=== PATIENT | male | born 1945 | race Caucasian/White ===

== ENCOUNTER → 2017-06-26 | Outpatient (CLI) | payer MEDICARE, OTHER ==
[~2017-06-26] MED LIST: ASPI-715 PO; ATEN-65 PO; BETA1TAB44 PO; BUDE3CAP6 PO; CYAN250013; DOXY-179 PO; ENZA40CA PO; EZET1TAB53 PO; LEVO75TA68 PO; METR-160 PO; NAPR220C12 PO; OLME1TAB57 PO; OLME1TAB60 PO; OMEP-125 PO; ONDA4TAB PO; POTA25TA28 PO; REGADENOSON 0.4 MG/5 ML SYR ONE; ROSU5TAB8 PO; [UNRECOGNIZED DRUG - CODE]
--- NOTE | 2017-06-28 22:20 | RT STRESS TEST REPORT ---
[place]AC[place] [facility] [place]IENT NAME: ROMELIA REID : [id number] MR: [id number] V: [id number] EXAM DATE: ORDERING PHYSICIAN: GREGORIA HERNÁNDEZ TECHNOLOGIST: Cal Acquisition Time: 2017-06-26 09:01:13 Total Exercise Time: 00:01:00 Test Indications: Syncope Medications: SEE NUC MED LIST Protocol: LEXISCAN Max HR: 083 BPM 54% of Pred: 151 BPM Max BP: 153/104 mmHG Max Work Load: 1.0 METS see nuclear med results Confirmed by KELLEN LOPEZ ([id number]) on 06/28/2017 10:19:36 PM Referred By: Edison Gomez Overread By: KELLEN LOPEZ
--- NOTE | 2017-06-29 14:22 | RADIOLOGY IMAGING REPORT ---
FACILITY: [facility] - [place] PATIENT NAME: Jarrod Osborne : 1945 MR: [id number] V: [id number] EXAM DATE: ORDERING PHYSICIAN: GREGORIA HERNÁNDEZ TECHNOLOGIST: Location[place] [facility] [place] Patient: Jarrod Osborne : 1945 Visit/Account:[id number] Date of Sevice: 06/26/2017 EXAMINATION: Single isotope SPECT imaging with regadenoson infusion and gated SPECT imaging. DATE OF EXAMINATION: 06/26/2017. DATE OF INTERPRETATION: 06/29/2017. REQUESTING PHYSICIAN: GREGORIA HERNÁNDEZ. INDICATION: The patient is a 71-year-old male evaluated for chest pain, history of CAD. PROCEDURE: After informed consent the patient received an intravenous injection of 11.8 mCi of Tc-99 m sestamibi followed at an appropriate time interval by rest imaging. The patient then subsequently received an intravenous infusion of 0.4 mg of regadenoson per protocol without complication. Resting heart rate was 52 bpm with a peak heart rate of 83 bpm. Blood pressure at rest was 153 / 104 and fo llowing infusion was 153 / 104. Baseline EKG demonstrates normal sinus rhythm, no ST or T-wave abnor malities. There were no EKG changes of ischemia following infusion. Symptoms were nonspecific. The patient then received an intravenous injection of 29.9 mCi of Tc-99m sestamibi followed by stress im aging. RAW DATA: Examination of the summed raw data revealed a good quality study. MYOCARDIAL PERFUSION: The tomographic images demonstrate normal study with no evidence of infarct or ischemia. GATED IMAGES: The gated images demonstrate hyperdynamic wall motion, ejection fraction 78%. IMPRESSION: 1. Good quality study 2. Normal myocardial perfusion scan. 3. Hyperdynamic LV systolic function; LVEF 78%. 4. Based on the results of this exam, the patient appears to be at low risk for future cardiovascular events but remains intermediate risk given history of CAD. Report Dictated By: Zaid Chino at 06/29/2017 2:14 PM Report E-Signed By: Zaid Chino at 06/29/2017 2:17 PM WSN:[id number]
== END ==
LOC: NUC 01:24
PROVIDERS: ATTEND Internal Medicine Cardiovascular Disease
DX: I25.118 Atherosclerotic heart disease of native coronary artery with other forms of angina pectoris (principal)
CPT/HCPCS: 78452; 93017; A9500; J2785

== ENCOUNTER 2017-06-30 10:29 | Emergency (ER) | payer MEDICARE, OTHER ==
[~2017-06-30 10:29] MED LIST changes: -REGADENOSON 0.4 MG/5 ML SYR ONE
--- NOTE | 2017-06-30 10:31 | ER Report ---
History and Physical Time Seen By MD: 10:30 Allergies: Coded Allergies: Penicillins (Verified Allergy, Severe, HIVES, TROUBLE BREATHING, 05/16/17) Home Meds Reported Medications Budesonide (BUDESONIDE EC) 3 Mg Capdr...er, 3 MG PO 05/16/17 Cyanocobalamin (Vitamin B-12) (Vitamin B12) 2,500 Mcg Tab.chew 01/26/17 Rosuvastatin Calcium (CRESTOR) 5 Mg Tablet, 5 MG PO QDAY 01/26/17 Enzalutamide (XTANDI) 40 Mg Capsule, 4 TAB PO DAILY, CAPSULE 01/26/17 Olmesartan/Hydrochlorothiazide (BENICAR HCT 40-12.5 MG TABLET) 1 Each Tablet, 1 EACH PO DAILY 01/26/17 Aspirin (Aspirin) 81 Mg Tablet.dr, 81 MG PO DAILY, 0 Refills 04/20/09 Atenolol (Atenolol) 25 Mg Tablet, 25 MG PO DAILY, 0 Refills 04/20/09 Levothyroxine Sodium (Synthroid) 75 Mcg Tablet, 112 MCG PO QDAY, 0 Refills 04/20/09 Hx Smoking: Yes Smoking Status: Former Smoker Depart Departure Referrals: VITA RAIN MD (PCP) DYAN WESTBROOK MD Jun 30, 2017 10:31
--- NOTE | 2017-06-30 10:52 | ER Report ---
History and Physical Time Seen By MD: 10:51 Hx. of Stated Complaint: PATIENT REPORTS THAT HIS SUPRAPUBIC CATHETER IS CLOGGED HPI/ROS CHIEF COMPLAINT: Catheter plugged HISTORY OF PRESENT ILLNESS: 71-year-old male patient presents to the emergency room with complaint of his catheter being plugged. Patient was seen in April and sent down to [facility] for elevated creatinine. They did place a suprapubic catheter there. Patient has had significant improvement since then. Patient states he's feeling fine. He is a couple days ago he knows that his catheter wasn't draining. He states over that time he is noticed that he was having some drainage around the catheter. Allergies: Coded Allergies: Penicillins (Verified Allergy, Severe, HIVES, TROUBLE BREATHING, 05/16/17) Home Meds Reported Medications Budesonide (BUDESONIDE EC) 3 Mg Capdr...er, 3 MG PO 05/16/17 Cyanocobalamin (Vitamin B-12) (Vitamin B12) 2,500 Mcg Tab.chew 01/26/17 Rosuvastatin Calcium (CRESTOR) 5 Mg Tablet, 5 MG PO QDAY 01/26/17 Enzalutamide (XTANDI) 40 Mg Capsule, 4 TAB PO DAILY, CAPSULE 01/26/17 Olmesartan/Hydrochlorothiazide (BENICAR HCT 40-12.5 MG TABLET) 1 Each Tablet, 1 EACH PO DAILY 01/26/17 Aspirin (Aspirin) 81 Mg Tablet.dr, 81 MG PO DAILY, 0 Refills 04/20/09 Atenolol (Atenolol) 25 Mg Tablet, 25 MG PO DAILY, 0 Refills 04/20/09 Levothyroxine Sodium (Synthroid) 75 Mcg Tablet, 112 MCG PO QDAY, 0 Refills 04/20/09 Past Medical/Surgical History Patient has a past medical history of hypertension, hyperlipidemia, hypothyroidism, prostate cancer. Patient has surgical history of bladder surgery for stones, left rotator cuff surgery, back surgery 3, suprapubic catheter. Reviewed Nurses Notes: Yes Hx Smoking: Yes Smoking Status: Former Smoker Physical Exam General appearance: Alert no distress. Respiratory: Chest is non tender, lungs are clear to auscultation. Cardiac: Regular rate and rhythm DIFFERENTIAL DIAGNOSIS: After history and physical exam differential diagnosis was considered for catheter blockage, catheter dysfunction. Medical Decision Making ED Course/Re-evaluation ED Course Patient examined, history and physical were obtained. Differential diagnoses were considered. On examination lungs are clear, heart is regular. Denied gotten here and evaluated the patient the catheter had been flushed, they were able to get out a mucous plug and then were able to drain it normally. The tube going down to the leg bag was washed as well without any difficulties and patient was draining urine at that time. We will go ahead and discharge patient home at this time. He is return to the emergency room with any worsening of his condition. He is to follow-up with his primary care provider, Dr. Ramos, in the next week. Patient verbalized understanding and agreement with plan. Decision to Disposition Date: Jun 30, 2017 Decision to Disposition Time: 11:00 Depart Departure Impression: Primary Impression: Obstructed suprapubic catheter Condition: Improved Disposition: HOME OR SELF-CARE Referrals: VITA RAIN MD (PCP) Patient Instructions: GENERAL ER DISCHARGE INSTRUCTIONS Additional Instructions: Increase fluid intake. Follow up with your primary care provider in the next week. Get plenty of rest. Return to the ER if condition worsens. Problem Qualifiers Primary Impression: Obstructed suprapubic catheter Encounter type: initial encounter Qualified Codes: T83.090A - Other mechanical complication of cystostomy catheter, initial encounter ZACKARY VICKERS Jun 30, 2017 10:52
== END 2017-06-30 11:08 | disposition home or self-care (01) ==
LOC: ER 10:39
DX: T83.090A Other mechanical complication of cystostomy catheter, initial encounter (principal)
CPT/HCPCS: 99282

== ENCOUNTER 2017-07-12 15:19 | Emergency (ER) | payer MEDICARE, OTHER ==
[~2017-07-12] VITALS: Ht 167.6 cm; Wt 53.5 kg
[2017-07-12 15:30] VITALS: BP 151/82
--- NOTE | 2017-07-12 15:32 | ER Report ---
History and Physical Time Seen By MD: 15:32 HPI/ROS CHIEF COMPLAINT: Suprapubic catheter replacement HISTORY OF PRESENT ILLNESS: This is a 71-year-old male who presents to the emergency department for a suprapubic catheter replacement as well as possible skin infection. Patient states that he noticed this morning while he was taking a shower that the area around his suprapubic catheter was red with some purulent drainage, he called Dr. Ramos who subsequently instructed the patient to come to the emergency department for the catheter replacement as well as antibiotics. Patient has no other complaints, no aches, chills, fevers, nausea, vomiting, diarrhea or headaches. REVIEW OF SYSTEMS: Respiratory: No cough, no dyspnea. Cardiovascular: No chest pain, no palpitations. Gastrointestinal: No vomiting, no abdominal pain. Musculoskeletal: No back pain. Integumentary: As above. Allergies: Coded Allergies: Penicillins (Verified Allergy, Severe, HIVES, TROUBLE BREATHING, 07/12/17) Home Meds Active Scripts Cephalexin (KEFLEX) 250 Mg Capsule, 500 MG PO Q6H for 5 Days, #20 CAPSULE Prov:REBECCA FABIAN DUMP TRUCK OPERATOR-BC 07/12/17 Reported Medications Budesonide (BUDESONIDE EC) 3 Mg Capdr...er, 3 MG PO 05/16/17 Cyanocobalamin (Vitamin B-12) (Vitamin B12) 2,500 Mcg Tab.chew 01/26/17 Rosuvastatin Calcium (CRESTOR) 5 Mg Tablet, 5 MG PO QDAY 01/26/17 Enzalutamide (XTANDI) 40 Mg Capsule, 4 TAB PO DAILY, CAPSULE 01/26/17 Olmesartan/Hydrochlorothiazide (BENICAR HCT 40-12.5 MG TABLET) 1 Each Tablet, 1 EACH PO DAILY 01/26/17 Aspirin (Aspirin) 81 Mg Tablet.dr, 81 MG PO DAILY, 0 Refills 04/20/09 Atenolol (Atenolol) 25 Mg Tablet, 25 MG PO DAILY, 0 Refills 04/20/09 Levothyroxine Sodium (Synthroid) 75 Mcg Tablet, 112 MCG PO QDAY, 0 Refills 04/20/09 Past Medical/Surgical History Chin has a past medical and surgical history of stent in the LAD, hypertension, hypercholesterolemia, GERD, autoimmune ulcerative colitis, prostatectomy, urinary sphincter, wears glasses, hypothyroidism, prostate cancer, stents placed , left rotator cuff repair, back surgery 3. Reviewed Nurses Notes: Yes Hx Smoking: Yes Smoking Status: Former Smoker Constitutional Vital Sign - Last 24 Hours 07/12/17 15:30 Temp 97.9 Pulse 56 Resp 14 B/P (MAP) 151/82 Pulse Ox 99 O2 Delivery Room Air Physical Exam General Appearance: The patient is alert, has no immediate need for airway protection and no current signs of toxicity. Eyes: Pupils equal and round no injection. Respiratory: Chest is non tender, lungs are clear to auscultation. Cardiac: regular rate and rhythm, no murmurs, clicks or rubs. Gastrointestinal: Abdomen is soft and non tender, no masses, bowel sounds normal. Musculoskeletal: Neck: Neck is supple and non tender. Extremities have full range of motion and are non tender. Skin: Small amount of erythema with purulent drainage from the suprapubic catheter site. DIFFERENTIAL DIAGNOSIS: After history and physical exam differential diagnosis was considered for suprapubic catheter dysfunction, suprapubic catheter clot, cellulitis. Medical Decision Making ED Course/Re-evaluation ED Course Patient was admitted to room. A history physical were obtained. Differential diagnosis considered. The patient's suprapubic catheter was removed without complications, the site was cleaned and prepped with Hibiclens. Then a new 12 Tajik Clark catheter was placed as a suprapubic catheter, without complications. He tolerated the procedure very well. Patient was placed on Keflex and instructed to follow-up with Dr. Ramos. Patient had no other questions or concerns and was discharged home. Patient was also encouraged to return to the emergency department for any worsening symptoms or any other concerns. Decision to Disposition Date: Jul 12, 2017 Decision to Disposition Time: 16:07 Depart Departure Latest Vital Signs Vital Signs Date Time Temp Pulse Resp B/P (MAP) Pulse Ox O2 Delivery O2 Flow Rate FiO2 07/12/17 15:30 97.9 56 14 151/82 99 Room Air Impression: Primary Impression: Encounter for care or replacement of suprapubic tube Condition: Improved Disposition: HOME OR SELF-CARE Referrals: VITA RAIN MD (PCP) New Scripts Cephalexin (KEFLEX) 250 Mg Capsule 500 MG PO Q6H for 5 Days, #20 CAPSULE Prov: REBECCA FABIAN DUMP TRUCK OPERATOR-BC 07/12/17 Patient Instructions: How to Care for Your Suprapubic Catheter (ED) Additional Instructions: Drink plenty of fluids. Get plenty of rest. We have collected a specimen from your site and cultured it, if your antibiotics need to be changed we will call you. Follow up with Dr. Gaming for within one week. May return to the ED for worsening symptoms. REBECCA FABIAN DUMP TRUCK OPERATOR- Jul 12, 2017 15:32
[2017-07-12] MEDS ORDERED: CEPH250C37 PO (16:11)
== END 2017-07-12 16:26 | disposition home or self-care (01) ==
LOC: ER 15:20
DX: T83.018A Breakdown (mechanical) of other urinary catheter, initial encounter (principal)
CPT/HCPCS: 87070; 87077; 87186; 99283; A4338

== ENCOUNTER 2017-07-24 21:30 | Emergency (ER) | payer MEDICARE, OTHER ==
[~2017-07-24] VITALS: Ht 167.6 cm; Wt 55.3 kg
[~2017-07-24 21:30] MED LIST changes: +CEPH250C37 PO
[2017-07-24 22:30] VITALS: BP 140/85
--- NOTE | 2017-07-24 22:48 | ER Report ---
History and Physical Time Seen By MD: 21:34 Hx. of Stated Complaint: PT REPORTS HAVING ISSUES WITH SUPRAPUBIC CATHETER. HPI/ROS CHIEF COMPLAINT: Suprapubic catheter problem HISTORY OF PRESENT ILLNESS: Patient reports suprapubic catheter accidentally came out today approximately 1 hour prior to arrival he did not notice until just prior to arrival where he replaced it with some difficulty. He is concerned it may have gotten contaminated by being outside the body. He is currently on Keflex for a recurrent UTI after some eye catheter problem in the recent past. He has a urology appointment tomorrow at [facility]. He is concerned about infection and likely catheter replaced today. Denies other concerns or complaints today. Past medical history includes prostate cancer radical prostatectomy and chemotherapy. Last dose was sometime ago. REVIEW OF SYSTEMS: Constitutional: No fever, no chills. Eyes: No discharge. ENT: No sore throat. Cardiovascular: No chest pain, no palpitations. Respiratory: No cough, no shortness of breath. Gastrointestinal: No abdominal pain, no vomiting. Genitourinary: No hematuria. Musculoskeletal: No back pain. Skin: No rashes. Neurological: No headache. Allergies: Coded Allergies: Penicillins (Verified Allergy, Severe, HIVES, TROUBLE BREATHING, 07/24/17) Home Meds Reported Medications Budesonide (BUDESONIDE EC) 3 Mg Capdr...er, 3 MG PO 05/16/17 Cyanocobalamin (Vitamin B-12) (Vitamin B12) 2,500 Mcg Tab.chew 01/26/17 Rosuvastatin Calcium (CRESTOR) 5 Mg Tablet, 5 MG PO QDAY 01/26/17 Enzalutamide (XTANDI) 40 Mg Capsule, 4 TAB PO DAILY, CAPSULE 01/26/17 Olmesartan/Hydrochlorothiazide (BENICAR HCT 40-12.5 MG TABLET) 1 Each Tablet, 1 EACH PO DAILY 01/26/17 Aspirin (Aspirin) 81 Mg Tablet.dr, 81 MG PO DAILY, 0 Refills 04/20/09 Atenolol (Atenolol) 25 Mg Tablet, 25 MG PO DAILY, 0 Refills 04/20/09 Levothyroxine Sodium (Synthroid) 75 Mcg Tablet, 112 MCG PO QDAY, 0 Refills 04/20/09 Discontinued Scripts Cephalexin (KEFLEX) 250 Mg Capsule, 500 MG PO Q6H for 5 Days, #20 CAPSULE Prov:REBECCA FABIAN CORK COMPOUNDER-BC 07/12/17 Hx Smoking: Yes Smoking Status: Former Smoker Constitutional Vital Sign - Last 24 Hours 07/24/17 07/24/17 07/24/17 07/24/17 21:34 21:34 21:45 22:00 Temp 98.3 Pulse 61 58 Resp 14 B/P (MAP) 163/98 (119) 144/107 (119) Pulse Ox 97 98 99 O2 Delivery Room Air 07/24/17 22:30 B/P (MAP) 140/85 (103) Intake and Output 07/24/17 07/24/17 07/25/17 15:00 23:00 07:00 Output Total 10 ml Balance -10 ml Physical Exam General Appearance: The patient is alert, has no immediate need for airway protection and no signs of toxicity. No distress Eyes: Pupils equal and round no pallor or injection. ENT, Mouth: Mucous membranes are moist. Respiratory: There are no retractions, lungs are clear to auscultation. Cardiovascular: Regular rate and rhythm. No murmurs gallops or rubs Gastrointestinal: Abdomen is soft and non tender, no masses, bowel sounds normal. Neurological: Normal Skin: Warm and dry, no rashes. Skin surrounding catheter site is mildly erythematous with mild discharge. No signs of abscess. Catheter appears intact Musculoskeletal: Neck is supple non tender. Extremities are nontender, nonswollen and have full range of motion. No edema DIFFERENTIAL DIAGNOSIS: After history and physical exam differential diagnosis was considered for catheter problem, catheter tip infection, UTI Medical Decision Making Data Points Laboratory Hematology Test 07/24/17 22:10 Urine Color Yellow Urine Clarity Turbid Urine pH 5.0 pH (4.8-9.5) Urine Specific [place] 1.014 Urine Protein 100 mg/dL (NEGATIVE) Urine Glucose (UA) Negative mg/dL (NEGATIVE) Urine Ketones Negative mg/dL (NEGATIVE) Urine Blood Moderate (NEGATIVE) Urine Nitrite Positive (NEGATIVE) Urine Bilirubin Negative (NEGATIVE) Urine Urobilinogen Negative mg/dL (0.2-1.9) Urine Leukocyte Esterase Large (NEGATIVE) Urine RBC 58 /HPF (0-2/HPF) Urine WBC 1479 /HPF (0-5/HPF) Urine WBC Clumps Many /HPF Urine Squamous Epithelial Cells Many /LPF (NONE-FEW) Urine Amorphous Crystals Few /HPF Urine Bacteria Few /HPF (NONE-FEW) Urine Mucus Few /HPF (NONE-FEW) Chemistry Test 07/24/17 22:10 Urine Color Yellow Urine Clarity Turbid Urine pH 5.0 pH (4.8-9.5) Urine Specific [place] 1.014 Urine Protein 100 mg/dL (NEGATIVE) Urine Glucose (UA) Negative mg/dL (NEGATIVE) Urine Ketones Negative mg/dL (NEGATIVE) Urine Blood Moderate (NEGATIVE) Urine Nitrite Positive (NEGATIVE) Urine Bilirubin Negative (NEGATIVE) Urine Urobilinogen Negative mg/dL (0.2-1.9) Urine Leukocyte Esterase Large (NEGATIVE) Urine RBC 58 /HPF (0-2/HPF) Urine WBC 1479 /HPF (0-5/HPF) Urine WBC Clumps Many /HPF Urine Squamous Epithelial Cells Many /LPF (NONE-FEW) Urine Amorphous Crystals Few /HPF Urine Bacteria Few /HPF (NONE-FEW) Urine Mucus Few /HPF (NONE-FEW) Urinalysis Test 07/24/17 22:10 Urine Color Yellow Urine Clarity Turbid Urine pH 5.0 pH (4.8-9.5) Urine Specific [place] 1.014 Urine Protein 100 mg/dL (NEGATIVE) Urine Glucose (UA) Negative mg/dL (NEGATIVE) Urine Ketones Negative mg/dL (NEGATIVE) Urine Blood Moderate (NEGATIVE) Urine Nitrite Positive (NEGATIVE) Urine Bilirubin Negative (NEGATIVE) Urine Urobilinogen Negative mg/dL (0.2-1.9) Urine Leukocyte Esterase Large (NEGATIVE) Urine RBC 58 /HPF (0-2/HPF) Urine WBC 1479 /HPF (0-5/HPF) Urine WBC Clumps Many /HPF Urine Squamous Epithelial Cells Many /LPF (NONE-FEW) Urine Amorphous Crystals Few /HPF Urine Bacteria Few /HPF (NONE-FEW) Urine Mucus Few /HPF (NONE-FEW) ED Course/Re-evaluation ED Course Plan of care agreed-upon ED time stamp catheter was replaced by tech without difficulty 12 Pashto placed atraumatically without bleeding noted pus on tip of catheter. Yeast was present as 05/18/2017 this micro-was provided for patient to bring to his urologist appointment to discuss. Urinalysis today's result was also provided. Decision to Disposition Date: Jul 24, 2017 Decision to Disposition Time: 23:09 Depart Departure Latest Vital Signs Vital Signs Date Time Temp Pulse Resp B/P (MAP) Pulse Ox O2 Delivery O2 Flow Rate FiO2 07/24/17 22:30 140/85 (103) 07/24/17 22:00 99 07/24/17 21:45 58 07/24/17 21:34 98.3 14 Room Air Impression: Primary Impression: Encounter for care or replacement of suprapubic tube Additional Impression: UTI (urinary tract infection) Condition: Improved Disposition: HOME OR SELF-CARE Referrals: VITA RAIN MD (PCP) New Scripts Nitrofurantoin Monohyd/M-Cryst (MACROBID 100 MG CAPSULE) 100 Mg Capsule 100 MG PO BID for 1 Day, #14 CAPSULE Prov: SALBADOR MONTESINOS MD 07/24/17 Patient Instructions: How to Care for Your Suprapubic Catheter (ED) Problem Qualifiers SALBADOR MONTESINOS MD Jul 24, 2017 22:48
[2017-07-24] MEDS ORDERED: NITR-105 PO (23:13)
== END 2017-07-24 23:20 | disposition home or self-care (01) ==
LOC: ER 21:41
DX: Z46.6 Encounter for fitting and adjustment of urinary device (principal); N39.0 Urinary tract infection, site not specified
CPT/HCPCS: 81001; 87071; 87088; 99283; A4338

== ENCOUNTER → 2017-10-23 | Outpatient (CLI) | payer MEDICARE, OTHER ==
[~2017-10-23] MED LIST changes: +NITR-105 PO
== END ==
LOC: SPU 07:45
PROVIDERS: ATTEND Urology
DX: C61 Malignant neoplasm of prostate (principal); N32.0 Bladder-neck obstruction
CPT/HCPCS: 51702

== ENCOUNTER → 2017-10-29 | Outpatient (CLI) | payer MEDICARE, OTHER ==
--- NOTE | 2017-10-29 11:33 | RADIOLOGY IMAGING REPORT ---
[facility] PATIENT NAME: Jarrod Osborne : 1945 MR: [id number] V: [id number] EXAM DATE: ORDERING PHYSICIAN: ROBBY MCNAMARA TECHNOLOGIST: Location: [facility] [place] Patient: Jarrod Osborne : 1945 Visit/Account:[id number] Date of Sevice: 10/29/2017 DEXA Scan Clinical history: Cystic cancer. Comparison: None available. LUMBAR SPINE: The bone mineral density (BMD) measured from L1-L4 correlates with a Z-score -1.3 and a T-score of -2 .3 which is osteopenia as defined by the World Health Organization. The corresponding risk of fractu re in the lumbar spine is 4-6 times increased compared with a young adult reference population. HIP: Bone mineral density (BMD) measured in the right total hip region correlates with a Z-score -1 and a T-score of -2 which is osteopenia as defined by the World Health Organization. The corresponding ris k of fracture in the hip is 4 times increased compared with a young adult reference population. T s core left femoral neck -2.4 Bone mineral density (BMD) measured in the Femoral Neck region measures 0.599 g/cm2. Impression: 1. Lumbar spine: Osteopenia. 2. Left Hip: Osteopenia. 3. Femoral Neck: Bone Mineral Density is 0.599 g/cm2 The next DEXA scan of this patient should include the following sites: L1-L4 and the left hip. FRAX? WHO Fracture Risk Assessment Tool link: <http://www.shef.ac.uk/FRAX/tool.jsp?locationValue=9> PLEASE NOTE: 1) The World Health Organization defines low BMD as follows: T-score Normal > -1 Osteopenia < -1 and > -2.5 Osteoporosis < -2.5 without fractures Established osteoporosis < -2.5 with fractures 2) In general, you may wish to consider: Diagnosis Treatment Follow-up DEXA Normal BMD Prevention 2-3 years Osteopenia Prevention/therapy 1-2 years Osteoporosis Therapy Yearly 3) Fracture risk estimated from the T-score is more accurate for vertebral fractures (often spontane ous) than for hip fractures. Report Dictated By: Ann Grant MD at 10/29/2017 11:28 AM Report E-Signed By: Ann Grant MD at 10/29/2017 11:29 AM ARJUNN:ELIZABETH
== END ==
LOC: RAD 03:20
PROVIDERS: ATTEND Urology
DX: Z13.820 Encounter for screening for osteoporosis (principal); M85.88 Other specified disorders of bone density and structure, other site; C61 Malignant neoplasm of prostate
CPT/HCPCS: 77080

== ENCOUNTER → 2017-11-27 | Outpatient (CLI) | payer MEDICARE, OTHER | LOC: SPU 08:17 | PROVIDERS: ATTEND Urology | DX: C61 Malignant neoplasm of prostate (principal); N32.0 Bladder-neck obstruction; R32 Unspecified urinary incontinence | CPT/HCPCS: 51702 ==

== ENCOUNTER → 2018-03-25 | Outpatient (RCR) | payer MEDICARE, OTHER ==
[2018-02-20 09:26] VITALS: BP 149/89
== END ==
LOC: SPU 07-19 08:11
PROVIDERS: ATTEND Internal Medicine Hematology & Oncology
DX: C61 Malignant neoplasm of prostate (principal); C41.9 Malignant neoplasm of bone and articular cartilage, unspecified; E53.8 Deficiency of other specified B group vitamins
CPT/HCPCS: 51702

== ENCOUNTER → 2018-03-26 | Outpatient (REF) | payer MEDICARE, OTHER | LOC: ZZSENDIN 17:12 | PROVIDERS: ATTEND Urology | DX: N39.0 Urinary tract infection, site not specified (principal) | CPT/HCPCS: 87088 ==

== ENCOUNTER → 2018-08-05 | Outpatient (CLI) | payer MEDICARE, OTHER ==
[~2018-08-05] MED LIST changes: -METR-160 PO; +METR500T15 PO
== END ==
LOC: SPU 15:09
PROVIDERS: ATTEND Family Medicine
DX: N39.0 Urinary tract infection, site not specified (principal)
CPT/HCPCS: 51701; 81001; 87088

== ENCOUNTER → 2018-08-30 | Outpatient (REF) | payer MEDICARE, OTHER | LOC: ZZSENDIN 17:06 | PROVIDERS: ATTEND Family Medicine | DX: R19.7 Diarrhea, unspecified (principal) | CPT/HCPCS: 83630; 83993; 87045; 87324; 87449 ==

== ENCOUNTER 2018-09-13 12:52 | Outpatient (RCR) | payer MEDICARE, OTHER ==
[2018-02-20 09:26] VITALS: BP 149/89
== END 2018-10-21 ==
LOC: SPU 12:52
PROVIDERS: ATTEND Urology
DX: N39.0 Urinary tract infection, site not specified (principal); N32.0 Bladder-neck obstruction; C61 Malignant neoplasm of prostate; B96.20 Unspecified Escherichia coli [E. coli] as the cause of diseases classified elsewhere; B96.89 Other specified bacterial agents as the cause of diseases classified elsewhere
CPT/HCPCS: 51701; 51702; 81001; 87077; 87088; 87186

== ENCOUNTER → 2018-12-04 | Outpatient (CLI) | payer MEDICARE, OTHER ==
[~2018-12-04] MED LIST changes: -OMEP-125 PO; +OMEP-126 PO
== END ==
LOC: LAB 10:57
PROVIDERS: ATTEND Urology
DX: N39.0 Urinary tract infection, site not specified (principal); B96.89 Other specified bacterial agents as the cause of diseases classified elsewhere
CPT/HCPCS: 87077; 87088; 87186

== ENCOUNTER 2019-01-06 11:30 | Outpatient (RCR) | payer MEDICARE, OTHER ==
[2018-02-20 09:26] VITALS: BP 149/89
== END 2019-01-08 13:28 | disposition home or self-care (01) ==
LOC: SPU 11:30
PROVIDERS: ATTEND Urology
DX: C61 Malignant neoplasm of prostate (principal); N32.0 Bladder-neck obstruction; N39.0 Urinary tract infection, site not specified
CPT/HCPCS: 51702

== ENCOUNTER 2019-01-19 10:23 | Inpatient (IN) | payer MEDICARE, OTHER ==
[~2019-01-19] VITALS: Ht 167.6 cm; Wt 59.0 kg
--- NOTE | 2019-01-19 10:28 | ER Report ---
History and Physical Time Seen By MD: 10:24 HPI/ROS CHIEF COMPLAINT: Flank pain, UTI symptoms HISTORY OF PRESENT ILLNESS: Patient is a 73-year-old male with past medical history significant for prostate cancer managed 20 years ago also currently on chemotherapy for some metastasis. Patient follows with Dr. Arley Lim at [facility] as is his urologist. He apparently is scheduled to have lateral reconstructive surgery in approximately one month. He also has a history of ulcerative colitis and does take steroids and has been on them for the last 3-4 weeks with no improvement of his diarrhea type symptoms. Patient states urine has been foul-smelling and is consistent with his history of prior urinary tract infections. For this reason he presents to the emergency department for evaluation. REVIEW OF SYSTEMS: Constitutional: Generalized malaise approximately 10 pound weight loss over the last week, anorexia Eyes: No discharge. ENT: No sore throat. Cardiovascular: No chest pain, no palpitations. Respiratory: No cough, no shortness of breath. Gastrointestinal: No abdominal pain, no vomiting. Right CVA tenderness Genitourinary: Foul-smelling urine Musculoskeletal: No back pain. Skin: No rashes. Neurological: No headache. Allergies: Coded Allergies: Penicillins (Verified Allergy, Severe, HIVES, TROUBLE BREATHING, 01/19/19) Home Meds Reported Medications Cyanocobalamin (Vitamin B-12) (B-12) 500 Mcg Tablet, 500 MCG PO DAILY 01/19/19 Levothyroxine Sodium (SYNTHROID) 112 Mcg Tablet, 112 MCG PO QDAY, TAB 01/19/19 Rosuvastatin Calcium (CRESTOR) 10 Mg Tab, 10 MG PO QDAY, #5 TAB 01/19/19 Budesonide (BUDESONIDE EC) 3 Mg Capdr...er, 9 MG PO QDAY take 3 capsules once a day 05/16/17 Enzalutamide (XTANDI) 40 Mg Capsule, 4 TAB PO DAILY, CAPSULE 01/26/17 Olmesartan/Hydrochlorothiazide (BENICAR HCT 40-12.5 MG TABLET) 1 Each Tablet, 1 EACH PO DAILY 01/26/17 Aspirin (Aspirin) 81 Mg Tablet., 81 MG PO DAILY, 0 Refills 04/20/09 Discontinued Reported Medications [vitamin b12] No Conflict Check, 500 MCG PO QDAY 01/19/19 Cyanocobalamin (Vitamin B-12) (Vitamin B12) 2,500 Mcg Tab.chew 01/26/17 Rosuvastatin Calcium (CRESTOR) 5 Mg Tablet, 5 MG PO QDAY 01/26/17 Atenolol (Atenolol) 25 Mg Tablet, 25 MG PO DAILY, 0 Refills 04/20/09 Levothyroxine Sodium (Synthroid) 75 Mcg Tablet, 112 MCG PO QDAY, 0 Refills 04/20/09 Discontinued Scripts Nitrofurantoin Monohyd/M-Cryst (MACROBID 100 MG CAPSULE) 100 Mg Capsule, 100 MG PO BID for 1 Day, #14 CAPSULE Prov:SALBADOR MONTESINOS MD 07/24/17 Past Medical/Surgical History past medical and surgical history of stent in the LAD, hypertension, hypercholesterolemia, GERD, autoimmune ulcerative colitis, prostatectomy, urinary sphincter, wears glasses, hypothyroidism, prostate cancer, stents placed, left rotator cuff repair, back surgery 3 . Hx Smoking: Yes Smoking Status: Former Smoker Constitutional Vital Sign - Last 24 Hours 01/19/19 01/19/19 01/19/19 01/19/19 10:26 10:30 10:35 10:53 Temp 98.5 Pulse 86 82 Resp 14 15 B/P (MAP) 124/75 (91) 114/79 (91) 114/79 Pulse Ox 93 90 O2 Delivery Room Air 01/19/19 01/19/19 01/19/19 01/19/19 11:00 11:23 11:30 11:53 Pulse 83 77 Resp 8 28 B/P (MAP) 100/71 (81) 107/72 (84) Pulse Ox 91 92 01/19/19 01/19/19 01/19/19 01/19/19 11:58 12:00 12:28 12:30 Pulse 76 73 Resp 27 12 B/P (MAP) 117/76 (90) 120/83 (95) Pulse Ox 93 91 01/19/19 01/19/19 01/19/19 01/19/19 13:00 13:05 13:30 13:35 Pulse 76 81 Resp 12 10 B/P (MAP) 114/72 (86) 129/84 (99) Pulse Ox 95 95 01/19/19 01/19/19 01/19/19 01/19/19 13:40 14:00 14:10 14:30 Pulse 82 81 Resp 9 19 B/P (MAP) 126/76 (93) 118/84 (95) Pulse Ox 91 91 01/19/19 01/19/19 01/19/19 01/19/19 14:40 14:45 15:00 15:15 Pulse 79 78 80 Resp 24 24 29 B/P (MAP) 118/81 (93) Pulse Ox 92 90 89 Physical Exam General/Constitutional: Patient is awake, alert, nontoxic and in no acute resp iratory distress. Head: Normocephalic and atraumatic. Eyes: Conjunctival clear, Ears:External canals are clear. Tympanic membranes are clear with normal landmarks and light reflex. Nares: No rhinorrhea or bleeding. Turbinates are pink and moist. Oropharyngeal: Mucous membranes are moist. There is no pharyngeal erythema or exudate. There are no palatal petechiae. Uvula is midline and symmetrical. Cardiovascular: Heart is regular rate and rhythm without audible murmurs, rubs or gallops. Pulmonary: Lungs are clear to auscultation bilaterally. There are no wheezes, rales, or rhonchi. Chest rise is symmetrical Abdomen: Soft, nontender, no guarding or peritoneal signs suprapubic catheter is intact in site looks clean no secondary signs of infection right CVA tenderness Extremities: No gross deformities, No peripheral cyanosis. Able to move all 4 extremities. Neuro: Alert and oriented X3, Skin: No rashes, skin is warm dry and well perfused. Medical Decision Making Data Points Result Diagram: 01/20/19 0546 01/20/19 0546 Laboratory Chemistry Test 01/19/19 10:30 01/19/19 11:54 Magnesium Level 1.8 mg/dl (1.7-2.2) Total Bilirubin 1.0 mg/dl (0.2-1.3) Aspartate Amino Transf (AST/SGOT) 19 U/L (0-35) Alanine Aminotransferase (ALT/SGPT) 11 U/L (0-56) Alkaline Phosphatase 145 U/L (0-126) Total Protein 7.8 g/dl (6.3-8.2) Albumin 3.9 g/dl (3.5-5.0) Lipase < 10 U/L (23-300) Lactate 1.3 mmol/L (0.7-2.1) Urinalysis Test 01/19/19 11:26 Urine Color Yellow Urine Clarity Turbid Urine pH 7.0 pH (4.8-9.5) Urine Specific [place] 1.017 Urine Protein 100 mg/dL (NEGATIVE) Urine Glucose (UA) Negative mg/dL (NEGATIVE) Urine Ketones Negative mg/dL (NEGATIVE) Urine Blood Small (NEGATIVE) Urine Nitrite Negative (NEGATIVE) Urine Bilirubin Negative (NEGATIVE) Urine Urobilinogen Negative mg/dL (0.2-1.9) Urine Leukocyte Esterase Moderate (NEGATIVE) Urine RBC 37 /HPF (0-2/HPF) Urine WBC 318 /HPF (0-5/HPF) Urine Squamous Epithelial Cells Many /LPF (NONE-FEW) Urine Bacteria Many /HPF (NONE-FEW) Urine Mucus Few /HPF (NONE-FEW) Microbiology Microbiology Date/Time Source Procedure Growth Status 01/19/19 11:26 Suprapubic Urine Urine Culture - Preliminary Gram Negative Arash Gram Negative Arash#2 Resulted EKG/Imaging Imaging FACILITY: [facility] PATIENT NAME: Jarrod Osborne : 1945 MR: [id number] V: [id number] EXAM DATE: ORDERING PHYSICIAN: DISHA KIDD TECHNOLOGIST: Location: [facility] [place] Patient: Jarrod Osborne : 1945 Visit/Account:[id number] Date of Sevice: 01/19/2019 EXAMINATION: CT abdomen and pelvis with contrast COMPARISON: 05/16/2017 and earlier. HISTORY: Flank pain. Urinary tract infection symptoms. History of prostate cancer. PROCEDURE: Multiplanar contrast enhanced CT of the abdomen and pelvis with 75 mL intravenous Isovue 370. One of the following dose optimization techniques was utilized in the performance of this exam: Automated exposure control; adjustment of the mA and/or kV according to the patient's size; or use of an iterative reconstruction technique. Specific details can be referenced in the facility's radiology CT exam operational policy. FINDINGS: Visualized thorax: Coronary atherosclerosis. No acute findings. Liver: Negative. Gallbladder and biliary system: Negative Spleen: Negative. Pancreas: Negative. Adrenal glands: Negative. Kidneys and bladder: Right kidney severe hydronephrosis with mildly heterogeneous decreased parenchymal enhancement. There is diffuse uroepithelial enhancement along the renal pelvis and ureter and a small amount of gas is present in both the proximal ureter and renal calyces. A suprapubic catheter is now present and there is a large amount of densely irregular stone disease between the suprapubic catheter balloon and the base of the urinary bladder. Some of this calcification does cover or extend into the right ureteral orifice. Mild inflammation is present along the distal left ureter but there is no evidence of left-sided hydronephrosis or renal parenchymal inflammation. Vessels: Moderate aortoiliac atherosclerosis. No abdominal aortic aneurysm. Portal venous system, IVC, and major mesenteric vessels are within normal church its. Bowel and mesentery: Stomach is within normal limits. No small bowel obstruction. The appendix is not identified with certainty; no pericecal inflammation. A small portion of cecal wall extends into a right inguinal hernia; no associated inflammation. Small amount of stool in the colon. No de finite bowel inflammation or mesenteric edema is identified. Pelvic organs: The prostate is potentially absent. Lymph nodes: Mild retroperitoneal adenopathy has increased since 05/16/2017. A inbound call center representative aortocaval lymph node measures 1.5 x 1.1 cm, previously 1.0 cm in maximal dimension. Free air/free fluid: None. Musculoskeletal: Small right inguinal hernia containing a short segment of bowel. No inflammation. Penile implant. Demineralization. L5 bilateral chronic pars defects at L5-S1 moderately advanced degenerative disc disease with 8 mm of spondylolisthesis is unchanged. No acute findings. IMPRESSION: 1. Right kidney severe hydronephrosis with mildly heterogeneous renal pa renchymal enhancement and a small amount of gas in the collecting system and ureter. The findings are concerning for a pyelonephritis and pyonephrosis although the gas could be related to the suprapubic catheter. Urology consultation is required. 2. No definite right ureteral stone is identified but bulky calcification and stones in the urinary bladder likely cover and potentially extend into the ureteral orifice. 3. Retroperitoneal adenopathy has mildly increased since 2017 and is concerning for metastatic prostate cancer. 4. Right inguinal hernia containing a short segment of cecal wall. There is no evidence of associated inflammation but if there is any clinical concern for an incarcerated/strangulated hernia, surgical consultation is recommended. 5. Additional chronic/incidental findings as described in the body of the report. Results were discussed with DISHA KIDD at 01/19/2019 1:23 PM. Report Dictated By: Yariel Lopez MD at 01/19/2019 1:06 PM Report E-Signed By: Yariel Lopez MD at 01/19/2019 1:27 PM WSN: [id number] ED Course/Re-evaluation ED Course 01/19/2019 1:52:[address] scan is concerning for severe right-sided hydronephrosis with mild parenchymal enhancement and small amount of gas in the collecting system and ureter the findings were consistent for pyelonephritis and hydronephrosis although the gas could also be related the suprapubic catheter. Patient does have symptoms of pyelonephritis and an elevated white blood cell count and a history of fever at home. I spoke with our on-call urologist Dr. Cade, history, physical exam blood work ED course and imaging studies were reviewed. Dr. Cade stated he would be happy to see the patient in consultation and would likely recommend a nephrostomy tube be placed versus less likely but also possible to place a stent in the right ureter. This was discussed with the patient and family they would like us to attempt to discuss this option with their urologist Dr. Arley Lim or one of his associates to see if they would agree with keeping the patient here or if he requires transfer down to [facility] in [place]. 01/19/2019 2:38:34 pm I still have not received a call back from the on-call urologist down at [facility], family was updated they had questions of whether or not they would be able to go home and arrange to be sent down to [place] tomorrow my discussion with Dr. Cade was that this needs to be addressed sooner rather than later so I stated that I will re-paged the urologist from [place] and discussed the case with them and give the patient and family the answer as to what the best disposition would be. I do not feel it would be safe however for the patient to go home and neither case 01/19/2019 3:10:20 pm [address] with [facility] urology. A partner of Dr. Lim he was given history physical exam blood work imaging studies and agrees the patient most likely will require a nephrostomy tube or a stent and feels that it would be appropriate to keep the patient here if the patient is in agreement. I did speak with family they are in agreement to keeping staying here for treatment Decision to Disposition Date: Jan 19, 2019 Decision to Disposition Time: 15:12 Depart Departure Latest Vital Signs Vital Signs Date Time Temp Pulse Resp B/P (MAP) Pulse Ox O2 Delivery O2 Flow Rate FiO2 01/19/19 15:15 80 29 89 01/19/19 15:00 118/81 (93) 01/19/19 10:35 98.5 Room Air Impression: Primary Impression: UTI (urinary tract infection) Additional Impression: Hydronephrosis Condition: Improved Disposition: Admitted from ER Referrals: VITA RAIN MD (PCP) Problem Qualifiers Primary Impression: UTI (urinary tract infection) Urinary tract infection type: acute pyelonephritis Qualified Codes: N10 - Acute pyelonephritis Additional Impression: Hydronephrosis Hydronephrosis type: other Qualified Codes: N13.39 - Other hydronephrosis DISHA KIDD MD Jan 19, 2019 10:28
[2019-01-19] MEDS ORDERED: NS(*) 0.9% 500 ML BAG 500 ML IV ONE (11:00)
[2019-01-19 11:23] LABS: PLATELET COUNT, AUTOMATED 331 K/uL (150-450)
[2019-01-19] MEDS ORDERED: LEVOFLOXACIN/D5W 750 MG/150 ML 150 ML IVPB ONE (12:20)
[2019-01-19] MEDS ORDERED: IOPAMIDOL 76% 100 ML INFUS BTL 100 ML ONE (12:40)
--- NOTE | 2019-01-19 12:47 | EKG ---
FACILITY: [facility] [place] PATIENT NAME: ROMELIA REID : [id number] MR: [id number] V: [id number] EXAM DATE: ORDERING PHYSICIAN: DISHA KIDD TECHNOLOGIST: JAIR Test Reason : UTI Blood Pressure : / mmHG Vent. Rate : 078 BPM Atrial Rate : 078 BPM P-R Int : 118 ms QRS Dur : 082 ms QT Int : 372 ms P-R-T Axes : 000 018 021 degrees QTc Int : 424 ms Normal sinus rhythm Normal ECG No previous ECGs available Confirmed by CLAU PEÑA ([id number]) on 01/19/2019 9:48:31 PM Referred By: BERNABE Confirmed By:CLAU PEÑA
--- NOTE | 2019-01-19 13:34 | RADIOLOGY IMAGING REPORT ---
FACILITY: [facility] [place] PATIENT NAME: Jarrod Osborne : 1945 MR: [id number] V: [id number] EXAM DATE: ORDERING PHYSICIAN: DISHA KIDD TECHNOLOGIST: Location: [facility] [place] Patient: Jarrod Osborne : 1945 Visit/Account:[id number] Date of Sevice: 01/19/2019 EXAMINATION: CT abdomen and pelvis with contrast COMPARISON: 05/16/2017 and earlier. HISTORY: Flank pain. Urinary tract infection symptoms. History of prostate cancer. PROCEDURE: Multiplanar contrast enhanced CT of the abdomen and pelvis with 75 mL intravenous Isovue 3 70. One of the following dose optimization techniques was utilized in the performance of this exam: A utomated exposure control; adjustment of the mA and/or kV according to the patient's size; or use of an iterative reconstruction technique. Specific details can be referenced in the facility's radiolo gy CT exam operational policy. FINDINGS: Visualized thorax: Coronary atherosclerosis. No acute findings. Liver: Negative. Gallbladder and biliary system: Negative Spleen: Negative. Pancreas: Negative. Adrenal glands: Negative. Kidneys and bladder: Right kidney severe hydronephrosis with mildly heterogeneous decreased parenchym al enhancement. There is diffuse uroepithelial enhancement along the renal pelvis and ureter and a sm all amount of gas is present in both the proximal ureter and renal calyces. A suprapubic catheter is now present and there is a large amount of densely irregular stone disease between the suprapubic cat heter balloon and the base of the urinary bladder. Some of this calcification does cover or extend in to the right ureteral orifice. Mild inflammation is present along the distal left ureter but there is no evidence of left-sided hydronephrosis or renal parenchymal inflammation. Vessels: Moderate aortoiliac atherosclerosis. No abdominal aortic aneurysm. Portal venous system, IVC , and major mesenteric vessels are within normal limits. Bowel and mesentery: Stomach is within normal limits. No small bowel obstruction. The appendix is not identified with certainty; no pericecal inflammation. A small portion of cecal wall extends into a r ight inguinal hernia; no associated inflammation. Small amount of stool in the colon. No definite bow el inflammation or mesenteric edema is identified. Pelvic organs: The prostate is potentially absent. Lymph nodes: Mild retroperitoneal adenopathy has increased since 05/16/2017. A fraud representative aortoca gilmar lymph node measures 1.5 x 1.1 cm, previously 1.0 cm in maximal dimension. Free air/free fluid: None. Musculoskeletal: Small right inguinal hernia containing a short segment of bowel. No inflammation. Pe nile implant. Demineralization. L5 bilateral chronic pars defects at L5-S1 moderately advanced degene rative disc disease with 8 mm of spondylolisthesis is unchanged. No acute findings. IMPRESSION: 1. Right kidney severe hydronephrosis with mildly heterogeneous renal parenchymal enhancement and a s mall amount of gas in the collecting system and ureter. The findings are concerning for a pyelonephri tis and pyonephrosis although the gas could be related to the suprapubic catheter. Urology consultati on is required. 2. No definite right ureteral stone is identified but bulky calcification and stones in the urinary b ladder likely cover and potentially extend into the ureteral orifice. 3. Retroperitoneal adenopathy has mildly increased since 2017 and is concerning for metastatic prosta te cancer. 4. Right inguinal hernia containing a short segment of cecal wall. There is no evidence of associated inflammation but if there is any clinical concern for an incarcerated/strangulated hernia, surgical consultation is recommended. 5. Additional chronic/incidental findings as described in the body of the report. Results were discussed with DISHA KIDD at 01/19/2019 1:23 PM. Report Dictated By: Yariel Lopez MD at 01/19/2019 1:06 PM Report E-Signed By: Yariel Lopez MD at 01/19/2019 1:27 PM WSN: [id number]
[2019-01-19 16:11] VITALS: BP 118/77
[2019-01-19] MEDS ORDERED: ROSU10TA PO (16:23)
[2019-01-19] MEDS ORDERED: vitamin b12 PO (16:23)
[2019-01-19] MEDS ORDERED: LEVO112T44 PO (16:23)
[2019-01-19] MEDS ORDERED: ACETAMINOPHEN 325 MG TAB PO PRN (17:45)
[2019-01-19] MEDS ORDERED: ONDANSETRON 4 MG/2 ML VIAL IVP PRN (17:45)
[2019-01-19] MEDS ORDERED: INFLUENZA VIRUS VAC 0.5ML SYR IM ONLY ONE (17:45)
[2019-01-19 18:25] VITALS: BP 128/78
[2019-01-19] MEDS ORDERED: CYAN500T54 PO (18:50)
[2019-01-19] MEDS ORDERED: HYDROCORTISONE 100 MG/2 ML IVP ONE (19:00)
[2019-01-19] MEDS: NS(*) 0.9% 1000 ML BAG 1,000 ML IV PRN (19:04)
--- NOTE | 2019-01-19 19:48 | History & Physical ---
History of Present Illness Chief Complaint Bilateral flank pain and lethargy since Sunday. History of Present Illness The patient is a 73 year old male with PMH significant for prostate CA s/p prostatectomy and radiation with subsequent bladder scarring/dysfunction resulting in suprapubic catheter placement who presents with bilateral flank ayad n and lethargy since Sunday. The patient was treated for a UTI on December 04 with Bactrim DS. At that time his urine culture grew Enterococcus faecalis which was fairly resistant. The patient's notes that he did fairly well for about 3 weeks and then began feeling ill again on Sunday. The patient notes that he is weak and has bilateral flank pain, R>L. His appetite has been fairly good. He does not believe he had fever at home but did not measure his temperature. The patient has a complicated history with prostate CA, prostatectomy, radiation resulting in bladder dysfunction and placement of a suprapubic catheter. He takes Xtandi (enzalutamide)160mg daily for prostate CA. He sees Dr. Lim in [place] at the [facility]. He also sees Dr. Jaffe who is a oncologic urologist. He is scheduled to have a bladder reconstruction in [place] at the end of January. The patient also has microlymphocytic colitis. He is currently taking budesonide 9mg daily for an exacerbation of his colitis. He has been on this for about one month. He states he is on steroids frequently for flare-ups of his colitis. He also has a history of CAD and had a stent placed in his LAD in 2002. He sees Dr. Obregon, dental assistant instructor, for this. History Problems: (1) Bladder dysfunction Status: Chronic (2) Prostate cancer Status: Chronic (3) Colitis Status: Chronic (4) HTN (hypertension) Status: Chronic (5) Hyperlipidemia Status: Chronic (6) Hypothyroidism Status: Chronic (7) CAD (coronary artery disease) Status: Chronic (8) Presence of suprapubic catheter Status: Chronic (9) History of lumbar surgery Status: Resolved Comment: X 2 (10) Hx of repair of rotator cuff Status: Resolved (11) Hx of prostatectomy Status: Resolved (12) History of bladder surgery Status: Resolved Home Meds Reported Medications Cyanocobalamin (Vitamin B-12) (B-12) 500 Mcg Tablet, 500 MCG PO DAILY 7/28/19 Levothyroxine Sodium (SYNTHROID) 112 Mcg Tablet, 112 MCG PO QDAY, TAB 01/19/19 Rosuvastatin Calcium (CRESTOR) 10 Mg Tab, 10 MG PO QDAY, #5 TAB 01/19/19 Budesonide (BUDESONIDE EC) 3 Mg Capdr...er, 9 MG PO QDAY take 3 capsules once a day 05/16/17 Enzalutamide (XTANDI) 40 Mg Capsule, 4 TAB PO DAILY, CAPSULE 01/26/17 Olmesartan/Hydrochlorothiazide (BENICAR HCT 40-12.5 MG TABLET) 1 Each Tablet, 1 EACH PO DAILY 01/26/17 Aspirin (Aspirin) 81 Mg Tablet.dr, 81 MG PO DAILY, 0 Refills 04/20/09 Discontinued Reported Medications [vitamin b12] No Conflict Check, 500 MCG PO QDAY 01/19/19 Cyanocobalamin (Vitamin B-12) (Vitamin B12) 2,500 Mcg Tab.chew 01/26/17 Rosuvastatin Calcium (CRESTOR) 5 Mg Tablet, 5 MG PO QDAY 01/26/17 Atenolol (Atenolol) 25 Mg Tablet, 25 MG PO DAILY, 0 Refills 04/20/09 Levothyroxine Sodium (Synthroid) 75 Mcg Tablet, 112 MCG PO QDAY, 0 Refills 04/20/09 Discontinued Scripts Nitrofurantoin Monohyd/M-Cryst (MACROBID 100 MG CAPSULE) 100 Mg Capsule, 100 MG PO BID for 1 Day, #14 CAPSULE Prov:SALBADOR MONTESINOS MD 07/24/17 Allergies: Coded Allergies: Penicillins (Verified Allergy, Severe, HIVES, TROUBLE BREATHING, 01/19/19) Other Social/Family Hx The patient is and lives with his in [place]. 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 FH is noncontributory. Hx Smoking: Yes Smoking Status: Former Smoker Hx Alcohol Use: No Hx Substance Use Disorder: No History of IV Drug Use: No Review of Systems All Systems Reviewed/Normal: Yes, Except as Noted Neurological: Weakness, Other (Numbness of leg and foot after back surgery.) Genitourinary: Other (Bilateral flank pain. Suprapubic catheter in place.) Exam Vital Signs Vital Signs Date Time Temp Pulse Resp B/P (MAP) Pulse Ox O2 Delivery O2 Flow Rate FiO2 01/19/19 18:25 99.6 73 20 128/78 (95) 90 Room Air General Appearance: Alert, Awake, Other (Appears ill.) Neuro: No Gross deficits Eyes: PERRLA Cardiovascular: Regular Rate and Rhythm Respiratory: Clear to Auscultation GI: Other (Abdomen soft, tender when palpating near suprapubic catheter. ) : Other (Suprapubic catheter in place with dark, foul smelling urine noted.) Extremities: Warm, Perfused Psych: Alert & Oriented X3, Appropriate Mood & Affect Medical Decision Making Data Points Result Diagram: 01/19/19 1030 01/19/19 1030 Item Value Date Time Random Glucose 116 mg/dl H 01/19/19 1030 Calcium Level 9.0 mg/dl 01/19/19 1030 Total Bilirubin 1.0 mg/dl 01/19/19 1030 Aspartate Amino Transf (AST/SGOT) 19 U/L 01/19/19 1030 Alanine Aminotransferase (ALT/SGPT) 11 U/L 01/19/19 1030 Alkaline Phosphatase 145 U/L H 01/19/19 1030 Total Protein 7.8 g/dl 01/19/19 1030 Albumin 3.9 g/dl 01/19/19 1030 Lipase < 10 U/L L 01/19/19 1030 Magnesium Level 1.8 mg/dl 01/19/19 1030 Lactate 1.3 mmol/L 01/19/19 1154 Urine Color Yellow 01/19/19 1126 Urine Clarity Turbid 01/19/19 1126 Urine pH 7.0 pH 01/19/19 1126 Urine Specific Transfer 1.017 01/19/19 1126 Urine Protein 100 mg/dL 01/19/19 1126 Urine Glucose (UA) Negative mg/dL 01/19/19 1126 Urine Ketones Negative mg/dL 01/19/19 1126 Urine Blood Small 01/19/19 1126 Urine Nitrite Negative 01/19/19 1126 Urine Bilirubin Negative 01/19/19 1126 Urine Urobilinogen Negative mg/dL 01/19/19 1126 Urine Leukocyte Esterase Moderate H 01/19/19 1126 Urine RBC 37 /HPF 01/19/19 1126 Urine WBC 318 /HPF 01/19/19 1126 Urine Squamous Epithelial Cells Many /LPF H 01/19/19 1126 Urine Bacteria Many /HPF H 01/19/19 1126 Urine Mucus Few /HPF 01/19/19 1126 Urine and blood cultures pending. EKG / Imaging EKG Interpretation FACILITY: [facility] PATIENT NAME: ROMELIA OSBORNE : [id number] MR: [id number] V: [id number] EXAM DATE: ORDERING PHYSICIAN: DISHA KIDD TECHNOLOGIST: JAIR Test Reason : UTI Blood Pressure : / mmHG Vent. Rate : 078 BPM Atrial Rate : 078 BPM P-R Int : 118 ms QRS Dur : 082 ms QT Int : 372 ms P-R-T Axes : 000 018 021 degrees QTc Int : 424 ms Normal sinus rhythm Normal ECG No previous ECGs available Referred By: BERNABE Confirmed By: 26 T: / Imaging FACILITY: [facility] PATIENT NAME: Romelia Osborne : 1945 MR: [id number] V: [id number] EXAM DATE: ORDERING PHYSICIAN: DISHA KIDD TECHNOLOGIST: Location: [facility] Patient: Romelia Osborne : 1945 Visit/Account:[id number] Date of Sevice: 01/19/2019 EXAMINATION: CT abdomen and pelvis with contrast COMPARISON: 05/16/2017 and earlier. HISTORY: Flank pain. Urinary tract infection symptoms. History of prostate cancer. PROCEDURE: Multiplanar contrast enhanced CT of the abdomen and pelvis with 75 mL intravenous Isovue 370. One of the following dose optimization techniques was utilized in the performance of this exam: Automated exposure control; adjustment of the mA and/or kV according to the patient's size; or use of an iterative reconstruction technique. Specific details can be referenced in the facility's radiology CT exam operational policy. FINDINGS: Visualized thorax: Coronary atherosclerosis. No acute findings. Liver: Negative. Gallbladder and biliary system: Negative Spleen: Negative. Pancreas: Negative. Adrenal glands: Negative. Kidneys and bladder: Right kidney severe hydronephrosis with mildly heterogeneous decreased parenchymal enhancement. There is diffuse uroepithelial enhancement along the renal pelvis and ureter and a small amount of gas is present in both the proximal ureter and renal calyces. A suprapubic catheter is now present and there is a large amount of densely irregular stone disease between the suprapubic catheter balloon and the base of the urinary bladder. Some of this calcification does cover or extend into the right ureteral orifice. Mild inflammation is present along the distal left ureter but there is no evidence of left-sided hydronephrosis or renal parenchymal inflammation. Vessels: Moderate aortoiliac atherosclerosis. No abdominal aortic aneurysm. Portal venous system, IVC, and major mesenteric vessels are within normal limits . Bowel and mesentery: Stomach is within normal limits. No small bowel obstruction. The appendix is not identified with certainty; no pericecal inflammation. A small portion of cecal wall extends into a right inguinal hernia; no associated inflammation. Small amount of stool in the colon. No defin ite bowel inflammation or mesenteric edema is identified. Pelvic organs: The prostate is potentially absent. Lymph nodes: Mild retroperitoneal adenopathy has increased since 05/16/2017. A new accounts representative aortocaval lymph node measures 1.5 x 1.1 cm, previously 1.0 cm in maximal dimension. Free air/free fluid: None. Musculoskeletal: Small right inguinal hernia containing a short segment of araseli wel. No inflammation. Penile implant. Demineralization. L5 bilateral chronic pars defects at L5-S1 moderately advanced degenerative disc disease with 8 mm of spondylolisthesis is unchanged. No acute findings. IMPRESSION: 1. Right kidney severe hydronephrosis with mildly heterogeneous renal paren chymal enhancement and a small amount of gas in the collecting system and ureter. The findings are concerning for a pyelonephritis and pyonephrosis although the gas could be related to the suprapubic catheter. Urology consultation is required. 2. No definite right ureteral stone is identified but bulky calcification and stones in the urinary bladder likely cover and potentially extend into the ure teral orifice. 3. Retroperitoneal adenopathy has mildly increased since 2017 and is concerning for metastatic prostate cancer. 4. Right inguinal hernia containing a short segment of cecal wall. There is no evidence of associated inflammation but if there is any clinical concern for an incarcerated/strangulated hernia, surgical consultation is recommended. 5. Additional chronic/incidental findings as described in the body of the report. Results were discussed with DISHA KIDD at 01/19/2019 1:23 PM. Report Dictated By: Yariel Lopez MD at 01/19/2019 1:06 PM Report E-Signed By: Yariel Lopez MD at 01/19/2019 1:27 PM WSN: [id number] Pre-Admit Course Medical Record Review: Yes Assessment and Plan Problems: (1) Pyelonephritis Status: Acute Assessment & Plan: The patient's last culture from November of this year grew Enterococcus faecalis, Aerococcus urinae and Aerococcus viridans. Sensitivies were only listed on the culture report for the Enterococcus which was resistant except to ampicillin, benzylpenicillin and linezolid. The patient is allergic to PCNs. He did receive a dose of Levaquin in the ER but his last urine culture showed he had an Enterococcus that was resistant to FQs. Will start linezolid and await current culture results. Will adjust antibiotic therapy accordingly. Dr. Cade will see the patient tomorrow and plans to take him to the OR for ureteral stent placement. (2) Hydronephrosis Status: Acute Assessment & Plan: The patient has had some chronic hydronephrosis but has acute worsening per CT. Dr. Cade will manage as above. (3) Dehydration Status: Acute Assessment & Plan: Will hydrate overnight. (4) Presence of suprapubic catheter Status: Chronic Assessment & Plan: This will need to be changed. (5) Prostate cancer Status: Chronic Assessment & Plan: The patient continues on Xtandi 160mg daily. (6) CAD (coronary artery disease) Status: Chronic Assessment & Plan: Will hold his ASA in the am prior to surgery. (7) Hyperlipidemia Status: Chronic Assessment & Plan: Continue Crestor. (8) Hypothyroidism Status: Chronic Assessment & Plan: Continue levothyroxine. (9) HTN (hypertension) Status: Chronic Assessment & Plan: Continue Benicar 40/12.5 daily. (10) Colitis Status: Chronic Assessment & Plan: Stool studies ordered in ER. Will order IV steroids perioperatively and resume his usual budesonide 9mg daily orally the day following surgery. Time Spent on Plan of Care: < 30 min Copies to: YENY JAFFE MD; VITA RAIN MD ; Venous Thromboembolism Antithrombotics Is Pt On Any Antithrombotics?: No Prophylaxis Tx Contraindicated Pharmacological Contraindicati: Surgical Contraindication Exam Sepsis Risk: No Definite Risk Problem Qualifiers (1) Hydronephrosis: Hydronephrosis type: other Qualified Codes: N13.39 - Other hydronephrosis (2) HTN (hypertension): Hypertension type: essential hypertension Qualified Codes: I10 - Essential (primary) hypertension CLAU GUAJARDO MD Jan 19, 2019 19:48
[2019-01-19] MEDS: LINEZOLID 600 MG/300 ML PREMIX 300 ML IVPB SCH (20:28)
[2019-01-19 22:51] VITALS: BP 123/69
[2019-01-20 02:30] VITALS: BP 122/73
[2019-01-20 06:11] LABS: PLATELET COUNT, AUTOMATED 271 K/uL (150-450)
--- NOTE | 2019-01-20 06:36 | RADIOLOGY IMAGING REPORT ---
FACILITY: [facility] PATIENT NAME: Jarrod Osborne : 1945 MR: [id number] V: [id number] EXAM DATE: ORDERING PHYSICIAN: MODESTA HITCHCOCK TECHNOLOGIST: [place] [facility] [place]: Jarrod Osborne : 1945 Visit/Account:[id number] Date of Sevice: 01/19/2019 CHEST SINGLE AP HISTORY: Pre-op evaluation. COMPARISON: None available. FINDINGS: Lines/tubes: None. Lungs/pleura: Negative. Heart: Negative. Mediastinum: Mild calcified plaque in the aortic arch. Normal mediastinal contours. Bony structures/body wall: Negative. IMPRESSION: No acute cardiopulmonary process. Report Dictated By: Erik Kaur MD at 01/20/2019 6:26 AM Report E-Signed By: Erik Kaur MD at 01/20/2019 6:29 AM WSN:[id number]
[2019-01-20 06:50] VITALS: BP 143/94
[2019-01-20] MEDS ORDERED: HYDROCORTISONE 100 MG/2 ML IVP ONE (09:00)
[2019-01-20] MEDS: NS(*) 0.9% 1000 ML BAG 1,000 ML IV PRN (09:05)
[2019-01-20] MEDS: LINEZOLID 600 MG/300 ML PREMIX 300 ML IVPB SCH ×2 (09:18→21:14)
[2019-01-20] MEDS: BUDESONIDE 3 MG CAP PO SCH (10:23)
[2019-01-20] MEDS: LEVOTHYROXINE SOD 0.112 MG TAB PO SCH (10:23)
[2019-01-20] MEDS: ENZALUTAMIDE 40 MG CAPSULE PO SCH (10:23)
[2019-01-20] MEDS: ROSUVASTATIN CALCIUM 10 MG TAB PO SCH (10:23)
--- NOTE | 2019-01-20 10:34 | Medical Nutrition Therapy ---
Nutrition Anthropometrics Height (Inches): 66 ((Self Reported)) Weight (Pounds): 130 Weight (Calculated Kilograms): 58.967 BMI: 21 Hx Weight Loss: Yes Jacobo Nutrition Score: Adequate Jacobo Nutrition Risk Score: 20 Dietary Referral Nutrition Risk Factors: Unplanned Loss >10lbs Nutrition Risk Comment: kidney infection Physical Findings Physical Appearance: WNR Skin Appearance Skin Appearance: Edema Edema Location Modifier: Edema Location: Type of Edema: Degree of Edema: Gastrointestinal Symptoms GI Symtoms: Diarrhea Tube Present: Bowel Sounds: Recent Bowel Pattern: Diarrhea Stool Characteristics: Brown, Loose Nutrition/Food History Poor (x 2-3 days) Nutritional Diagnosis Nutritional Risk Acuity 2: Unintended Wt Loss >5%/mo Nutritional Acuity: 2-Moderate Nutrition Diagnosis: Involuntary Wt. Loss, Altered GI Function Nutrition Etiology: Malabsorption/Intolerance, Physiological Causes Nutrition Problem/Etiology/Sym: microlymphocytic colitis, chronic diarrhea, 7% wt loss x 3 weeks (severe) Energy Requirement: 2176 ([place] St[employer] Jeor) Protein Requirement: 65 (1g/kg (Used [place] Body Weight of 142 lbs)) Fluid Requirement: 2176 (1kcal/mL) Diet Type: NPO (Nothing by Mouth) Nutrition Monitoring & Eval Nutrition Follow-Up: Poor Intake Nutrition Monitoring: Intake, Weight, Output, Electrolytes RD Patient Assessment Time: [address] Assessment Type: RD Assessment Patient Nutrition Acuity: 2-Moderate Follow Up Date: Jan 24, 2019 Nutritional Comment: 01/20/19: Spoke with pt and spouse this am. Pt states has lost ~10 lbs in the last 3 weeks. Prior to colitis pt wt was 165 lbs, 2 years ago. Recent weight has been around 140 with recent loss in the last 3 weeks. His appetite is usually good and typically eats 2-3 meals daily, however, the last 2-3 days has been poor with limited intake. Reports has had hypokalemia in the past, he drinks gatorade frequently at home. He also reports severe diarrhea with a reported frequency of hourly diarrhea during the day and 2-3x/at night. Pt has upcoming bladder replacement surgery in January and was concerned that he may not be in good enough condition for the procedure. Pt has microlymphocytic colitis. Significant past medical history includes prostate cancer, bladder dysfunction. Pertinent current rx include budesonide, rosuvastatin, levothyroxine, zofran. Sodium lab slightly low, chloride WNR, and potassium was in normal range. Currently receiving NS at 100mL/hr. Given frequency of diarrhea/malabasorption and 7% wt loss x 3 weeks the patient could benefit from bowel rest and temporary TPN to promote weight gain and healing. Discussed idea of TPN with pt and . Provided handout on medical nutrition therapy for ulcerative colitis focusing on low fiber. Will continue to monitor weight, intakes, output and will provide additional recommendations as needed.ZOE CARUSO Jan 20, 2019 10:34
[2019-01-20 12:14] VITALS: BP 148/88
[2019-01-20] MEDS ORDERED: LEVOFLOXACIN/D5W*500 MG/100 ML 100 ML IVPB SCH (13:00)
--- NOTE | 2019-01-20 15:08 | Hospitalist Progress Note ---
Subjective Progress Notes Subjective 73M admitted with pyelonephritis. LEON overnight, improving this am no CVA tenderness. Patient Complains of: Gastrointestinal: No Nausea, No Vomiting Genitourinary: No Dysuria Physical Exam Vital Signs Date Time Temp Pulse Resp B/P (MAP) Pulse Ox O2 Delivery O2 Flow Rate FiO2 01/20/19 12:14 98.5 70 16 148/88 (108) 95 Room Air Intake and Output 01/20/19 07:03 Intake Total 1696 ml Output Total 300 ml Balance 1396 ml IV Total 1696 ml Output Urine Total 300 ml # Voids 2 # Bowel Movements 5 General Appearance: Alert, Awake, No Acute Distress, Afebrile Neuro: No Gross deficits Cardiovascular: Normal Rhythm & Peripheral Pulses Respiratory: No Respiratory Distress GI: Soft and Non-Tender : No CVA Tenderness Integumentary: Skin Intact without Lesion / Mass Result Diagram: 01/20/1954501/20/19545 Assessment and Plan Problems: (1) Pyelonephritis Status: Acute Assessment & Plan: The patient's last culture from November of this year grew Enterococcus faecalis, Aerococcus urinae and Aerococcus viridans. Enterococcus resistant except to ampicillin, benzylpenicillin and linezolid, allergic to PCNs. Continue linezolid and await current culture results. Dr. Cade saw patient, if not improving would need nephrostomy tube placed by IR. (2) Hydronephrosis Status: Acute Assessment & Plan: The patient has had some chronic hydronephrosis but has acute worsening per CT. Dr. Cade will manage as above. (3) Dehydration Status: Acute Assessment & Plan: Responded to IV hydration (4) Presence of suprapubic catheter Status: Chronic Assessment & Plan: Cancer center will be asked to change SPT. (5) Prostate cancer Status: Chronic Assessment & Plan: The patient continues on Xtandi 160mg daily. (6) CAD (coronary artery disease) Status: Chronic Assessment & Plan: Continue ASA (7) Hyperlipidemia Status: Chronic Assessment & Plan: Continue Crestor. (8) Hypothyroidism Status: Chronic Assessment & Plan: Continue levothyroxine. (9) HTN (hypertension) Status: Chronic Assessment & Plan: Continue Benicar 40/12.5 daily. (10) Colitis Status: Chronic Assessment & Plan: Secondary to microscopic colitis. Continue budesonide 9mg daily. Exam Sepsis Risk: No Definite Risk Problem Qualifiers (1) Hydronephrosis: Hydronephrosis type: other Qualified Codes: N13.39 - Other hydronephrosis (2) HTN (hypertension): Hypertension type: essential hypertension Qualified Codes: I10 - Essential (primary) hypertension CHRISTA CORREA DO Jan 20, 2019 15:07
--- NOTE | 2019-01-20 15:27 | Hospitalist Consultation ---
History of Present Illness Reason for Consult Hydronephrosis, possible urosepsis Chief Complaint Low-grade fever malaise History of Present Illness Patient is a 73-year-old gentleman with a long-standing and complex urologic history. He underwent radical prostatectomy for prostate cancer approximately 20 years ago but then apparently had biochemical recurrence and underwent pelvic radiation. I think he has had biochemical recurrence since that time since he is currently on oral antiandrogen. At some point he had a artificial urinary sphincter placed for urinary incontinence. He has been under the care of Dr. Aldair dias in the [place] area and is currently scheduled for a reconstructive procedure next month which I think will consist of cystectomy and neobladder construction. He came to the emergency room yesterday with several days of malaise, inanition and low-grade fever. He had a slightly elevated white blood cell count as well. He underwent CT scan imaging which demonstrates progression of previously iden tified right-sided hydronephrosis with a small amount of gas in the collecting system. The patient's bladder is currently managed with an indwelling suprapubic tube. History Home Meds Reported Medications Cyanocobalamin (Vitamin B-12) (B-12) 500 Mcg Tablet, 500 MCG PO DAILY 01/19/19 Levothyroxine Sodium (SYNTHROID) 112 Mcg Tablet, 112 MCG PO QDAY, TAB 01/19/19 Rosuvastatin Calcium (CRESTOR) 10 Mg Tab, 10 MG PO QDAY, #5 TAB 01/19/19 Budesonide (BUDESONIDE EC) 3 Mg Capdr...er, 9 MG PO QDAY take 3 capsules once a day 05/16/17 Enzalutamide (XTANDI) 40 Mg Capsule, 4 TAB PO DAILY, CAPSULE 01/26/17 Olmesartan/Hydrochlorothiazide (BENICAR HCT 40-12.5 MG TABLET) 1 Each Tablet, 1 EACH PO DAILY 01/26/17 Aspirin (Aspirin) 81 Mg Tablet.dr, 81 MG PO DAILY, 0 Refills 04/20/09 Discontinued Reported Medications [vitamin b12] No Conflict Check, 500 MCG PO QDAY 01/19/19 Cyanocobalamin (Vitamin B-12) (Vitamin B12) 2,500 Mcg Tab.chew 01/26/17 Rosuvastatin Calcium (CRESTOR) 5 Mg Tablet, 5 MG PO QDAY 01/26/17 Atenolol (Atenolol) 25 Mg Tablet, 25 MG PO DAILY, 0 Refills 04/20/09 Levothyroxine Sodium (Synthroid) 75 Mcg Tablet, 112 MCG PO QDAY, 0 Refills 04/20/09 Discontinued Scripts Nitrofurantoin Monohyd/M-Cryst (MACROBID 100 MG CAPSULE) 100 Mg Capsule, 100 MG PO BID for 1 Day, #14 CAPSULE Prov:SALBADOR MONTESINOS MD 07/24/17 Allergies: Coded Allergies: Penicillins (Verified Allergy, Severe, HIVES, TROUBLE BREATHING, 01/19/19) Hx Smoking: Yes Smoking Status: Former Smoker Hx Alcohol Use: No Hx Substance Use Disorder: No History of IV Drug Use: No Review of Systems Constitutional: Fever Eyes: No Vision Change, No Loss of Vision, No Photophobia, No Other ENT: No Hearing Loss, No Sinus Congestion, No Sore Throat, No Ear Ache, No Tinnitus, No Other Cardiovascular: No Chest Pain, No Palpitations, No Orthostatic Hypotension, No Other Gastrointestinal: Diarrhea Genitourinary: Hematuria Musculoskeletal: No Pain, No Sprain, No Strain, No Impaired Mobility, No Other Exam Vital Signs Vital Signs Date Time Temp Pulse Resp B/P (MAP) Pulse Ox O2 Delivery O2 Flow Rate FiO2 01/20/19 12:14 98.5 70 16 148/88 (108) 95 Room Air General Appearance: Alert, Awake Eyes: PERRLA ENT: Normal Cardiovascular: Normal Rhythm & Peripheral Pulses Respiratory: No Respiratory Distress Chest: No Masses GI: Abd Soft and Non-Tender : No CVA Tenderness, Other (suprapubic tube draining cloudy urine) Musculoskeletal: No Weakness/Pain Extremities: Soft and Non Tender Medical Decision Making Data Points Result Diagram: 01/20/1954501/20/19545 Assessment and Plan Condition I was consulted by the emergency room about his condition and I expressed my concern about his progressive obstruction of the right kidney. Of greater concern was that his obstructed right kidney was his septic source, which I doubt it could be drained cystoscopically given his end-stage bladder and pos sible infiltration of tumor into the distal right ureter versus fibrosis. The patient was admitted to the hospitalist service and has remained afebrile, and both his white count and renal function have normalized. I had a half hour discussion with the patient and his at his bedside this morning and told him I thought if he continues to show signs of clinical improvement he could probably be discharged on an oral antibiotic pending the results of his urine and blood cultures. I told him however that if his condition deteriorates, I would have a very low threshold to transfer him to the [facility] for placement of a percutaneous tube. At this point however he does appear to have responded to IV rehydration and antibiotics. I will recommend that he have oral dietary supplements since a large surgery is anticipated. I will also ask the nurses to irrigate his suprapubic tube with 20 cc of saline every shift. Venous Thromboembolism Antithrombotics Is Pt On Any Antithrombotics?: No Exam Sepsis Risk: No Definite Risk MODESTA HITCHCOCK MD Jan 20, 2019 15:27
[2019-01-20 15:47] VITALS: BP 151/91
--- NOTE | 2019-01-20 16:43 | Antimicrobial Stewardship ---
Antimicrobial Time Out Antimicrobial Stewardship MD Service: Hospitalist Indications: UTI Antimicrobial Used LEVAQUIN 750 IV ONCE IN ER, SWITCHED TO LINEZOLID 300MG IV Q12H BASED ON HISTORICAL INFECTION. Start Date: Jan 19, 2019 Culture Results: No (PENDING) Eligible for PO Conversion Eligable for PO Conversion: No Reviewed with Provider Reviewed w/ Provider on Rounds: No Comments Comments Linezolid 300mg Q12H based on historical data until new cultures can direct therapy. ANTONIO GILLESPIE Jan 20, 2019 16:43
[2019-01-20 19:09] VITALS: BP 128/80
[2019-01-20] MEDS ORDERED: HYDROCORTISONE 100 MG/2 ML IVP SCH (21:00)
[2019-01-21] MEDS: NS(*) 0.9% 1000 ML BAG 1,000 ML IV PRN (00:16)
[2019-01-21 00:17] VITALS: BP 130/80
[2019-01-21 05:31] VITALS: BP 149/83
[2019-01-21 07:17] VITALS: BP 157/88
[2019-01-21] MEDS ORDERED: IOTHALAMATE MEGLU 172MG/ML BTL 250 ML IVPB ONE (09:15)
--- NOTE | 2019-01-21 09:55 | Urology Progress Note ---
Subjective Patient Complains of: Neurological: No: Syncope, Confusion, Weakness, Dizziness, Slurred Speech, Other Gastrointestinal: Nausea, Vomiting, Flatus, Bowel Movement, Other (loose bowel movement) Physical Exam Vital Signs Date Time Temp Pulse Resp B/P (MAP) Pulse Ox O2 Delivery O2 Flow Rate FiO2 01/21/19 07:17 98.4 57 16 157/88 (111) 97 Room Air Intake and Output 01/21/19 07:03 Intake Total 1237 ml Output Total 800 ml Balance 437 ml Intake Oral 250 ml IV Total 987 ml Output Urine Total 800 ml # Bowel Movements 1 General Appearance: Alert, Awake GI: Soft and Non-Tender : No CVA Tenderness, Other (suprapubic tube draining fecal material) Result Diagram: 01/20/19 0546 01/20/1944 Assessment and Plan Problems: (1) Rectovesical fistula Status: Acute Condition I did a cystogram this morning in the fluoroscopy suite and he has obvious communication between the bladder and the rectum. I will look to transfer him to the [facility] for the placement of a percutaneous nephrostomy tube/universal catheter. Time Spent: > 30 min Exam Sepsis Risk: No Definite Risk MODESTA HITCHCOCK MD Jan 21, 2019 09:55
[2019-01-21] MEDS: ROSUVASTATIN CALCIUM 10 MG TAB PO SCH (10:23)
[2019-01-21] MEDS: LEVOTHYROXINE SOD 0.112 MG TAB PO SCH (10:23)
[2019-01-21] MEDS: BUDESONIDE 3 MG CAP PO SCH (10:25)
[2019-01-21] MEDS: ENZALUTAMIDE 40 MG CAPSULE PO SCH (10:25)
[2019-01-21] MEDS: LINEZOLID 600 MG/300 ML PREMIX 300 ML IVPB SCH (10:25)
--- NOTE | 2019-01-21 11:52 | Hospitalist Depart ---
Discharge Summary Reason for Hosp/Final Diag: (1) Pyelonephritis Status: Acute Hospital Course & Plan: The patient's last culture from November of this year grew Enterococcus faecalis, Aerococcus urinae and Aerococcus viridans. Enterococcus resistant except to ampicillin, benzylpenicillin and linezolid, allergic to PCNs. Continue linezolid and await current culture results. Dr. Cade saw patient, he recommends transfer for nephrostomy tube placed by IR. Patient was accepted by Dr. Guevara at [facility]. (2) Rectovesical fistula Status: Acute Hospital Course & Plan: Dr. Cade found fistula on cystogram this morning. He recommend transfer for treatment of fistula. (3) Hydronephrosis Status: Acute Hospital Course & Plan: The patient has had some chronic hydronephrosis but has acute worsening per CT. See above plan. (4) Dehydration Status: Acute Hospital Course & Plan: Responded to IV hydration. (5) Presence of suprapubic catheter Status: Chronic Hospital Course & Plan: Cancer center changed suprapubic catheter. (6) Prostate cancer Status: Chronic Hospital Course & Plan: The patient continues on Xtandi 160mg daily. (7) CAD (coronary artery disease) Status: Chronic Hospital Course & Plan: Continue ASA (8) Hyperlipidemia Status: Chronic Hospital Course & Plan: Continue Crestor. (9) Hypothyroidism Status: Chronic Hospital Course & Plan: Continue levothyroxine. (10) HTN (hypertension) Status: Chronic Hospital Course & Plan: Continue Benicar 40/12.5 daily. (11) Colitis Status: Chronic Hospital Course & Plan: Secondary to microscopic colitis. Continue budesonide 9mg daily. Departure Latest Vital Signs Vital Signs 01/21/19 07:17 Temp 98.4 Pulse 57 Resp 16 B/P (MAP) 157/88 (111) Pulse Ox 97 O2 Delivery Room Air Weight (Pounds): 130 Result Diagram: 01/20/1944 01/20/19545 Condition: No Change Discharge: Another Hospital Discharge Instructions Home Meds Reported Medications Cyanocobalamin (Vitamin B-12) (B-12) 500 Mcg Tablet, 500 MCG PO DAILY 01/19/19 Levothyroxine Sodium (SYNTHROID) 112 Mcg Tablet, 112 MCG PO QDAY, TAB 01/19/19 Rosuvastatin Calcium (CRESTOR) 10 Mg Tab, 10 MG PO QDAY, #5 TAB 01/19/19 Budesonide (BUDESONIDE EC) 3 Mg Capdr...er, 9 MG PO QDAY take 3 capsules once a day 05/16/17 Enzalutamide (XTANDI) 40 Mg Capsule, 4 TAB PO DAILY, CAPSULE 01/26/17 Olmesartan/Hydrochlorothiazide (BENICAR HCT 40-12.5 MG TABLET) 1 Each Tablet, 1 EACH PO DAILY 01/26/17 Aspirin (Aspirin) 81 Mg Tablet.dr, 81 MG PO DAILY, 0 Refills 04/20/09 Discontinued Reported Medications [vitamin b12] No Conflict Check, 500 MCG PO QDAY 01/19/19 Cyanocobalamin (Vitamin B-12) (Vitamin B12) 2,500 Mcg Tab.chew 01/26/17 Rosuvastatin Calcium (CRESTOR) 5 Mg Tablet, 5 MG PO QDAY 01/26/17 Atenolol (Atenolol) 25 Mg Tablet, 25 MG PO DAILY, 0 Refills 04/20/09 Levothyroxine Sodium (Synthroid) 75 Mcg Tablet, 112 MCG PO QDAY, 0 Refills 04/20/09 Discontinued Scripts Nitrofurantoin Monohyd/M-Cryst (MACROBID 100 MG CAPSULE) 100 Mg Capsule, 100 MG PO BID for 1 Day, #14 CAPSULE Prov:SALBADOR MONTESINOS MD 07/24/17 Diet: Regular Activity: As Tolerated Venous Thromboembolism Antithrombotics Is Pt On Any Antithrombotics?: No Problem Qualifiers (1) Hydronephrosis: Hydronephrosis type: other Qualified Codes: N13.39 - Other hydronephrosis (2) HTN (hypertension): Hypertension type: essential hypertension Qualified Codes: I10 - Essential (primary) hypertension COLIN GRIALDO DENTAL FRONT OFFICE ASSISTANT Jan 21, 2019 11:52
[2019-01-21 12:31] VITALS: BP 154/103
--- NOTE | 2019-01-21 14:47 | RADIOLOGY IMAGING REPORT ---
FACILITY: [facility] PATIENT NAME: Jarrod Osborne : 1945 MR: [id number] V: [id number] EXAM DATE: ORDERING PHYSICIAN: MODESTA HITCHCOCK TECHNOLOGIST: Location: [facility] Patient: Jarrod Osborne : 1945 Visit/Account:[id number] Date of Sevice: 01/21/2019 EXAMINATION: Cystogram 01/21/2019 5:00 AM HISTORY: evaluate for rectovesical fistula COMPARISON: CT 01/19/2019 FLUOROSCOPY TIME: 0.4 minutes DOSE: DAP was 248.74 uGy/m2 FINDINGS: Cystography was performed by Dr. Hitchcock utilizing fluoroscopy. Cysto-Conray contrast was instilled into the bladder via the indwelling Clark catheter. Contrast extends into bowel in the lef t lower quadrant from the bladder. Contrast appears to be within the colon however as the injection progresses this fills a left lower quadrant loop which does not appear to be colon. On the final laura ge sequence there is contrast which appears to be in the distal colon extending up into the left lowe r quadrant and another serpiginous loop which appears to show a coloenteric fistula. There is no sig nificant fluid collection outside of bowel shown on the recent CT, and therefore this additional leandro ection presumably does reflect a coloenteric fistula rather than simple extracolonic extravasation. 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 Report Dictated By: Tawanda Melton MD at 01/21/2019 2:12 PM Report E-Signed By: Tawanda Melton MD at 01/21/2019 2:39 PM WSN:[email or web address]
== END 2019-01-21 14:00 | DRG 872 ==
LOC: ER 10:29 → MED 15:33
PROVIDERS: ADMIT Internal Medicine; ATTEND Internal Medicine
PROC: BT10YZZ Fluoroscopy of Bladder using Other Contrast (ICD-10-PCS; principal; 2019-01-21)
DX: A41.9 Sepsis, unspecified organism (principal); N13.6 Pyonephrosis; N32.1 Vesicointestinal fistula; K51.90 Ulcerative colitis, unspecified, without complications; E86.0 Dehydration; I25.10 Atherosclerotic heart disease of native coronary artery without angina pectoris; E78.5 Hyperlipidemia, unspecified; C61 Malignant neoplasm of prostate; E03.9 Hypothyroidism, unspecified; I10 Essential (primary) hypertension; Z88.0 Allergy status to penicillin; Z79.52 Long term (current) use of systemic steroids; Z95.1 Presence of aortocoronary bypass graft; Z87.891 Personal history of nicotine dependence; Z92.3 Personal history of irradiation; Z92.21 Personal history of antineoplastic chemotherapy
CPT/HCPCS: 36415; 71045; 74177; 74430; 81001; 82040; 82247; 82310; 82374; 82435; 82565; 82947; 83605; 83690; 83735; 84075; 84132; 84155; 84295; 84450; 84460; 84520; 85025; 87077; 87088; 87186; 93005; 96361; 96365; 99285; J1956; J2020; J7030; J7040; Q9958; Q9967